=== PATIENT | male | born 1985 | race Hispanic/Latino ===

== ENCOUNTER 2018-10-08 15:55 | Inpatient (IN) | payer OTHER ==
[2018-10-08 17:12] LABS: EOS % 0.1 % (0.0-4.0); HEMOGLOBIN 16.2 g/dL (12.0-18.0); MONO # 0.6 K/uL (0.0-0.8)
[2018-10-08 17:14] LABS: URINE BILIRUBIN NEGATIVE (NEGATIVE); URINE BLOOD NEGATIVE (NEGATIVE); URINE CLARITY Clear (Clear); URINE COLOR Yellow (YELLOW); URINE GLUCOSE (UA) NORMAL (Normal); URINE LEUKOCYTE ESTERASE NEG Leu/uL (Negative); URINE PROTEIN NEGATIVE (NEGATIVE)
--- NOTE | 2018-10-08 17:16 | C.PDOC ---
History Of Present Illness 32yo male, with history of alcohol abuse, comes to ER requesting detox from alcohol. Patient reports last use was earlier today. He denies any fever, chills, chest pain, abdominal pain, shortness of breath or withdrawal symptoms. No medical complaints at this time. Time Seen by Provider: 10/08/18 16:15 Chief Complaint (Nursing): Substance Abuse History Per: Patient History/Exam Limitations: no limitations Current Symptoms Are (Timing): Still Present Associated Symptoms: denies: Suicidal Thoughts, Suicidal Plan Past Medical History Reviewed: Historical Data, Nursing Documentation, Vital Signs Vital Signs: Last Vital Signs Temp 98.2 F 10/08/18 15:59 Pulse 105 H 10/08/18 15:59 Resp 18 10/08/18 15:59 BP 141/91 H 10/08/18 15:59 Pulse Ox 100 10/08/18 15:59 - Medical History PMH: Asthma, Bipolar Disorder Family History: States: No Known Family Hx - Social History Hx Alcohol Use: Yes Hx Substance Use: No - Immunization History Hx Tetanus Toxoid Vaccination: Yes Hx Influenza Vaccination: Yes Hx Pneumococcal Vaccination: Yes Review Of Systems Except As Marked, All Systems Reviewed And Found Negative. Constitutional: Negative for: Fever, Chills Cardiovascular: Negative for: Chest Pain Respiratory: Negative for: Shortness of Breath Gastrointestinal: Negative for: Vomiting, Abdominal Pain Psych: Negative for: Suicidal ideation, Withdrawal Physical Exam - Physical Exam Appears: No Acute Distress Skin: Normal Color Head: Atraumatic, Normacephalic Eye(s): bilateral: Normal Inspection Neck: Normal ROM, Supple Chest: Symmetrical Cardiovascular: Rhythm Regular Respiratory: Normal Breath Sounds Gastrointestinal/Abdominal: Normal Exam, Soft Extremity: Normal ROM, No Pedal Edema Neurological/Psych: Oriented x3 ED Course And Treatment - Laboratory Results Result Diagrams: 10/08/18 17:07 10/08/18 17:07 O2 Sat by Pulse Oximetry: 100 (RA) Pulse Ox Interpretation: Normal Progress Note: Labs and urinalysis ordered. 1756: Patient noted to have tremors and is in withdrawals; librium and ativan given. 18:10 patient is medically cleared. Crisis called and informed, waiting evaluation and accepting physician. Disposition - Disposition Disposition Time: 19:00 Condition: STABLE Forms: Shared Performance (Stateless) - Clinical Impression Clinical Impression: Alcohol dependence - PA / HUMAN RESOURCES LEADER / Resident Statement MD/DO has reviewed & agrees with the documentation as recorded. - Scribe Statement The provider has reviewed the documentation as recorded by the Yolanda Love Provider Attestation: All medical record entries made by the Damarisibmarcus were at my direction and personally dictated by me. I have reviewed the chart and agree that the record accurately reflects my personal performance of the history, physical exam, medical decision making, and the department course for this patient. I have also personally directed, reviewed, and agree with the discharge instructions and disposition. Physician Patient Turnover Patient Signed Over To: Paul Laura Handoff Comments: pending dispo to detox
[2018-10-08 17:17] LABS: BASO % 0.6 % (0.0-2.0); LYMPH % 15.9 % (20.0-40.0); MEAN CELL VOLUME 92.8 fL (80.0-94.0); MEAN CORPUSCULAR HEMOGLOBIN 32.6 pg (27.0-31.0); MEAN CORPUSCULAR HGB CONC 35.1 g/dL (33.0-37.0); MEAN PLATELET VOLUME 7.5 fL (7.2-11.7); MONO % 9.2 % (0.0-10.0); NEUT # 4.7 K/uL (1.8-7.0); NEUT % 74.2 % (50.0-75.0); NRBC % 0.2 % (0.0-2.0); RBC 4.98 Mil/uL (4.40-5.90); RED CELL DISTRIBUTION WIDTH 13.8 % (11.5-14.5); WHITE BLOOD COUNT 6.4 K/uL (4.8-10.8)
[2018-10-08 17:24] LABS: ALB/GLOB RATIO 1.7 (1.0-2.1); ALT/SGPT 39 U/L (21-72); AST/SGOT 75 U/L (17-59); BLOOD UREA NITROGEN 10 mg/dL (9-20); CALCIUM 9.4 mg/dl (8.6-10.4); GFR NON-AFRICAN AMERICAN > 60
[2018-10-08 17:30] LABS: BARBITURATES, UR NEGATIVE (NEGATIVE); OPIATES, UR NEGATIVE (NEGATIVE); PHENCYCLIDINE, UR NEGATIVE (NEGATIVE)
[2018-10-08 17:39] LABS: BENZODIAZEPINES, UR POSITIVE (NEGATIVE)
--- NOTE | 2018-10-08 22:29 | PCM.BM ---
<Jovita Cruz - Last Filed: 10/08/18 22:27> Treatment Plan Problems - Problems identified on initial assessmt Anxiety Related to Substance Abuse Date Initiated: 10/08/18 Time Initiated: 22:28 Assessment reference: NA Status: Active Defensive Coping Date Initiated: 10/08/18 Time Initiated: 22:28 Assessment reference: NA Status: Active Knowledge Deficit: Alcohol Use Date Initiated: 10/08/18 Time Initiated: 22:29 Assessment reference: NA Status: Active Treatment assets and liabiliti Patient Assests: ADL independent, negotiates basic needs, cognitively intact Patient Liabilities: substance abuse (ETOH) - Milieu Protocol Maintain good personal hygiene: daily Encourage regular showers, daily Remind patient to perform daily oral care, daily Assist patient to perform ADL's Conduct patient checks and document Observation sheet: Q15 minutes Maintain personal safety: every shift Educate patient to report safety concerns to staff, every shift Monitor environment for contraband/sharps Medication safety: Monitor for expected outcome, potential side effects: every shift, Assess barriers to learning: every shift, Assess readiness for medication education: every shift <Jacqueline Dickson - Last Filed: 10/11/18 14:10> - Diagnosis (1) Alcohol dependence Status: Acute Interventions: 10/11/18 14:07 * Assess 7x/week regarding severity of withdrawal * Educate regarding risks, benefits, side effects and alternatives of medications * Use Motivational Interviewing for abstinence * Use CBT for relapse prevention * Medication management for withdrawal symptoms * Encourage medication assisted treatment *
[2018-10-09] MEDS: Multiple Vitamins Tab PO SCH (09:19)
--- NOTE | 2018-10-09 18:06 | PCM.PSYCH ---
Initial Psychiatric Evaluation - Initial Psychiatric Evaluation Type of Admission: Voluntary Legal Status: Capacity Chief Complaint (in patient's own words): I stopped taking my medications and started drinking alcohol heavily. History of Present Illness and Precipitating Events: Patient is a 32 years old, single, unemployed, with history of bipolar I disorder depressed and ADHD was admitted due to withdrawing from alcohol. Patient reported that he stopped taking medications about 10 days ago and started drinking alcohol heavily and now he is depressed and withdrawing from alcohol. Alcohol: Started drinking alcohol at 16 years of age, increased gradually. Currently he was drinking one Liter of alcohol daily. His last drink was one day before. Currently patient was experiencing withdrawal symptoms including shaking, sweating, body aches, mild tremors. Patient reported that in between he was stopping and then again started drinking for many days. History of 1 previous detox. Longest period of abstinence first 90 days in the past. Denied use of any drugs including cocaine, cannabis and heroin. Patient smokes cigarettes and is requesting for nicotine patch. 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 He lives alone. Never and has no children. Patient is not working and is supported by parents. Current Medications: Active Medications Generic Name Dose Route Start Last Admin Trade Name Freq PRN Reason Stop Dose Admin Chlordiazepoxide 25 mg 10/08/18 23:45 10/09/18 09:19 Librium PO 25 mg Q4H PRN Administration Alcohol Withdrawal Chlordiazepoxide 25 mg 10/09/18 00:00 10/09/18 17:17 Librium PO 10/12/18 23:59 25 mg Q6 HARISH Administration Taper Clonidine HCl 0.1 mg 10/08/18 23:45 Catapres PO Q4H PRN Symptoms of alcohol withdrawl Escitalopram Oxalate 20 mg 10/09/18 10:00 10/09/18 09:19 Lexapro PO 20 mg DAILY HARISH Administration Folic Acid 1 mg 10/09/18 10:00 10/09/18 09:19 Folic Acid PO 1 mg DAILY HARISH Administration Gabapentin 300 mg 10/09/18 10:00 10/09/18 17:17 Neurontin PO 300 mg TID HARISH Administration Hydroxyzine HCl 25 mg 10/08/18 22:36 10/09/18 14:16 Atarax PO 25 mg Q6 PRN Administration Anxiety Hydroxyzine HCl 25 mg 10/09/18 11:49 Atarax PO Q6 PRN Anxiety Ibuprofen 400 mg 10/08/18 23:48 Motrin Tab PO Q6 PRN Pain, moderate (4-7) Multivitamins 1 tab 10/09/18 10:00 10/09/18 09:19 Hexavitamin PO 1 tab DAILY HARISH Administration Nicotine 1 patch 10/09/18 10:00 10/09/18 09:49 Nicoderm Cq TD 1 patch DAILY HARISH Administration Quetiapine Fumarate 300 mg 10/09/18 22:00 Seroquel PO HS HARISH Thiamine HCl 100 mg 10/09/18 10:00 10/09/18 09:19 Vitamin B1 Tab PO 100 mg DAILY HARISH Administration Trazodone HCl 50 mg 10/08/18 22:36 Desyrel PO HS PRN Insomnia Past Psychiatric History - Past Psychiatric History Previous Treatment History: Inpatient History of Abuse: None reported History of ETOH/Drug Use: See HPI History of Family Illness: Reported his sister has history of borderline personality disorder, bipolar disorder depressed and heroine use disorder. His brother has history of depression. Pertinent Medical Hx (Current Medical&Sleep Prob, Allergies): Allergies Allergy/AdvReac Type Severity Reaction Status Date / Time No Known Allergies Allergy Verified 10/08/18 16:02 Amphetamine Salt Combination [Adderall] 10 mg PO TID 10/08/18 Escitalopram [Lexapro] 20 mg PO DAILY 10/08/18 Lurasidone Hydrochloride [Latuda] 40 mg PO DAILY 10/08/18 Quetiapine Fumarate [Seroquel] 200 mg PO HS 10/08/18 clonazePAM [clonAZEPAM] 0.5 mg PO QID PRN 10/08/18 Asthma Review of Systems - Psychiatric Psychiatric: As Per HPI, Depression Mental Status Examination - Personal Presentation Personal Presentation: Looks stated age - Affect Affect: Depressed - Motor Activity Motor Activity: Calm - Reliability in Providing Information Reliability in Providing Information: Good - Speech Speech: Organized - Mood Mood: Depressed - Formal Thought Process Formal Thought Process: No Impairment - Hallucinations/Delusions Hallucinations: Other (None reported) Delusions: Other - Obsessions/Compulsions Obsessions: None Compulsions: None - Cognitive Functions Orientation: Person, Place, Situation, Time Sensorium: Alert Attention/Concentration: Attentive Abstract Thinking: [place]ett Estimate of Intelligence: Average Judgement: Intact, as evidence by: Insight regarding need for hospitalization Memory: Recent intact, as evidence by: Ability to recall events of the day, Remote intact, as evidenced by: Ability to recall historical events - Risk Risk: Withdrawal, Diminished functioning - Strength & Assets Inventory Strength & Assets Inventory: Family support, Cooperative - Limitations Limitations: Living alone DSM 5 DX - DSM 5 DSM 5 Diagnosis: Alcohol withdrawal. Alcohol use disorder severe. Bipolar I disorder depressed - Recommended/Plan of Treatment Treatment Recommendations and Plan of Treatment: Patient education. Supportive therapy. CBT for relapse prevention. HI for abstinence. Will start Librium taper for alcohol withdrawal symptoms. Multivitamin Thiamine Folic acid Other PRN medications Medication for bipolar disorder Projected ELOS: 4-5 days Discharge Plan and Discharge Criteria: No or minimal withdrawal symptoms. Improvement in depression. Medication adjustment. Patient wants to go to an [facility] for follow-up care after discharge from the hospital. - Smoking Cessation Smoking Cessation Initiated: Yes
[2018-10-10] MEDS: Multiple Vitamins Tab PO SCH (09:01)
[2018-10-10] MEDS ORDERED: Magnesium Hydroxide Susp 30 ml UD PO ONE (14:15)
[2018-10-11] MEDS: Multiple Vitamins Tab PO SCH (09:48)
--- NOTE | 2018-10-11 14:04 | PCM.PYCHPN ---
Psychiatric Progress Note - Psychiatric Progress Note Patient seen today, length of contact: 17 min Patient Chief Complaint: "I am not well" Problems Identified/Issues Discussed: The pt is seen, chart reviewed, case discussed with staff. The pt is compliant with medications and reports no side-effects. Symptoms are improving but needs more time to stabilize. Pt attends groups and activities. Support given, psycho-education provided. Lots of mood sxs, anxiety, wants to resume Adderall too (we don't carry it) b/c he gets "bored" After care discussed. He wants to go to a partial care - refuses rehab b/c of job applications. Medication Change: Yes (detox changes daily) Medical Record Reviewed: Yes Mental Status Examination - Cognitive Function Orientation: Person, Place, Situation, Time Memory: Intact Attention: Poor Concentration: Poor Association: WNL Fund of Knowledge: WNL - Mood Mood: Depressed, Anxious - Affect Affect: Constricted - Speech Speech: Appropriate - Formal Thought Process Formal Thought Process: No Impairment - Suicidal Ideation Suicidal Ideation: No - Homicidal Ideation Homicidal Ideation: No Goal/Treatment Plan - Goal/Treatment Plan Need for Continued Stay: Severe depression anxiety, Discharge may exacerbated symptoms, Severe functional impairment Progress Toward Problem(s) and Goals/Treatment Plan: Continue medications Support and psychoeducation daily Attend groups and activities daily After care planning by counselors - likely a PHP close to his home He refused lexapro as he will resume Latuda after d/c Senior Account Executive spoke to him about antabuse and naltrexone and he agreed to think today Estimated Date of D/C: 10/13/18
[2018-10-12] MEDS: Multiple Vitamins Tab PO SCH (09:15)
--- NOTE | 2018-10-12 11:18 | PCM.PYCHPN ---
Psychiatric Progress Note - Psychiatric Progress Note Patient seen today, length of contact: 17 min Patient Chief Complaint: "I am getting better" Problems Identified/Issues Discussed: The pt is seen, chart reviewed, case discussed with staff. Support and psychoeducation given, CBT and [place] used briefly No new symptoms reported, improving slowly and needs more time No SEs from medications, risks discussed. After care discussed Naltrexone started Medication Change: Yes (detox changes daily, Naltrexone added) Medical Record Reviewed: Yes Mental Status Examination - Cognitive Function Orientation: Person, Place, Situation, Time Memory: Intact Attention: Poor Concentration: Poor Association: WNL Fund of Knowledge: WNL - Mood Mood: Depressed, Anxious - Affect Affect: Constricted - Speech Speech: Appropriate - Formal Thought Process Formal Thought Process: No Impairment - Suicidal Ideation Suicidal Ideation: No - Homicidal Ideation Homicidal Ideation: No Goal/Treatment Plan - Goal/Treatment Plan Need for Continued Stay: Severe depression anxiety, Discharge may exacerbated symptoms, Severe functional impairment Progress Toward Problem(s) and Goals/Treatment Plan: Continue medications Support and psychoeducation daily Attend groups and activities daily After care planning by counselors - likely a PHP close to his home He refused lexapro as he will resume Latuda after d/c Naphthalene Still Operator spoke to him about antabuse and naltrexone and he agreed to think today Estimated Date of D/C: 10/13/18
[2018-10-12 11:34] VITALS: RESP 18
[2018-10-13 06:56] VITALS: TEMP 97.6; O2SAT 98
[2018-10-13] MEDS: Multiple Vitamins Tab PO SCH (09:29)
--- NOTE | 2018-10-13 09:40 | PCM.PYCHDC ---
Mental Status Examination - Mental Status Examination Orientation: Person Discharge Summary - Discharge Note Consultations:: List each consultation separately and include: 1. Reason for request. 2. Findings. 3. Follow-up Summary of Hospital Course include:: 1. Description of specific treatment plan utilized for patients during their course of treatmen. 2. Summarize the time- course for resolution of acute symptoms and/or regressed behaviors. 3. Describe issues identified and worked on during hospitalization. 4. Describe medication utilized. 5. Describe medical problems identified and treated. 6. Reassessment of suicide risk Summary of Hospital Course: He will go to [facility] and will get Vivitrol shot - Diagnosis (1) Alcohol dependence Current Visit: Yes Status: Acute - Final Diagnosis (DSM 5) Condition upon Discharge: STABLE Disposition: HOME/ ROUTINE Follow-up Treatment Plan: Continue medications Support and psychoeducation daily Attend groups and activities daily After care planning by counselors - likely a PHP close to his home He refused lexapro as he will resume Latuda after d/c Pattern Chain Builder spoke to him about antabuse and naltrexone and he agreed to think today Prescriptions/Medication Reconciliation: Gabapentin [Neurontin] 300 mg PO TID #90 cap hydrOXYzine HCl [Atarax] 25 mg PO BID PRN #60 tab PRN Reason: Anxiety Lurasidone Hydrochloride [Latuda] 40 mg PO DAILY #30 tab Naltrexone [Revia] 50 mg PO DAILY #30 tab traZODone [Desyrel] 150 mg PO HS PRN #90 tab PRN Reason: Insomnia
[2018-10-13 09:50] VITALS: BP 118/83; PULSE 91
== END 2018-10-13 10:35 | disposition home or self-care (01) | DRG 895 ==
LOC: C.ER 15:55 → C.7D 22:05
PROC: HZ2ZZZZ Detoxification Services for Substance Abuse Treatment (ICD-10-PCS; principal; 2018-10-08)
PROC: HZ59ZZZ Individual Psychotherapy for Substance Abuse Treatment, Supportive (ICD-10-PCS; 2018-10-08)
PROC: HZ46ZZZ Group Counseling for Substance Abuse Treatment, Psychoeducation (ICD-10-PCS; 2018-10-08)
PROC: GZ3ZZZZ Medication Management (ICD-10-PCS; 2018-10-08)
DX: F10.230 Alcohol dependence with withdrawal, uncomplicated (principal); F31.30 Bipolar disorder, current episode depressed, mild or moderate severity, unspecified; F17.210 Nicotine dependence, cigarettes, uncomplicated; F41.9 Anxiety disorder, unspecified; F90.9 Attention-deficit hyperactivity disorder, unspecified type; J45.909 Unspecified asthma, uncomplicated; Z81.8 Family history of other mental and behavioral disorders